=== PATIENT | male | born 1940 | race Caucasian/White ===

== ENCOUNTER 2017-02-20 12:32 | Emergency (ER) | payer MEDICARE, OTHER ==
[2017-02-20] MEDS ORDERED: Aspirin 81 MG Tab.Chew PO ONE ×2 (12:58→13:35)
[2017-02-20 13:05] VITALS: BP 147/90
--- NOTE | 2017-02-20 13:17 | EDM.PDOC ---
ED HPI GENERAL MEDICAL PROBLEM - General Chief Complaint: Neuro Symptoms/Deficits Stated Complaint: MAYBE A STROKE Time Seen by Provider: 02/20/17 12:45 - History of Present Illness INITIAL COMMENTS - FREE TEXT/NARRATIVE: Driving with about 90 minutes ago and developed double vision. Hard to drive, pulled over. Hx of similar sxs 10 years ago with full stroke work-up, no stroke found, has been on 81 mg of ASA since. Denies headache, change in speech , weakness, swallowing problems. Vision cleared after about 20 minutes - Related Data Allergies Allergy/AdvReac Type Severity Reaction Status Date / Time amoxicillin Allergy Shortness Verified 02/20/17 13:21 of Breath Home Meds: Home Meds Fluticasone/Salmeterol [Advair Diskus 500-50] 1 puff INH BID 02/20/17 [History] Sertraline [Zoloft] 100 mg PO DAILY 02/20/17 [History] atorvaSTATin [Lipitor] 10 mg PO DAILY 02/20/17 [History] traZODone 50 mg PO 5XDAY PRN 02/20/17 [History] Past Medical History Cardiovascular History: Reports: High Cholesterol Respiratory History: Reports: Asthma Oncologic (Cancer) History: Reports: Prostate Social & Family History - Family History Family Medical History: Noncontributory Cardiac: Reports: None ED ROS GENERAL - Review of Systems Review Of Systems: See Below Constitutional: Reports: No Symptoms HEENT: Reports: No Symptoms Respiratory: Reports: No Symptoms Cardiovascular: Reports: No Symptoms Endocrine: Reports: No Symptoms GI/Abdominal: Reports: No Symptoms : Reports: No Symptoms Musculoskeletal: Reports: No Symptoms Skin: Reports: No Symptoms Neurological: Reports: Other (double vision, cleared now). Denies: Headache, Numbness, Syncope, Tingling, Trouble Speaking, Difficulty Walking, Weakness, Change in Speech, Gait Disturbance Psychiatric: Denies: Confusion Hematologic/Lymphatic: Reports: No Symptoms Immunologic: Reports: No Symptoms ED EXAM, NEURO - Physical Exam Exam: See Below Exam Limited By: No Limitations General Appearance: Alert, No Apparent Distress Ears: Normal External Exam, Normal Canal, Hearing Grossly Normal, Normal TMs Nose: Normal Inspection, Normal Mucosa, No Blood Throat/Mouth: Normal Inspection, Normal Lips, Normal Oropharynx Head Exam: Atraumatic, Normocephalic Neck: Normal Inspection, Supple, Non-Tender. No: Carotid Bruit Respiratory/Chest: No Respiratory Distress, Lungs Clear, Normal Breath Sounds, Chest Non-Tender Cardiovascular: Normal Peripheral Pulses, Regular Rate, Rhythm, No Murmur GI/Abdominal: Normal Bowel Sounds, Soft, Non-Tender Neurological: Alert, Normal Mood/Affect, Normal Dorsiflexion, CN II-XII Intact, Normal Plantar Flexion, Normal Gait, Normal Reflexes, No Motor/Sensory Deficits , Oriented x 3 Back Exam: Normal Inspection Extremities: Normal Inspection Psychiatric: Normal Affect Skin Exam: Warm, Dry, No Rash Course - Vital Signs Last Recorded V/S: Last Vital Signs Temp 36.8 C 02/20/17 12:59 Pulse 78 02/20/17 12:59 Resp 16 02/20/17 12:59 BP 147/90 H 02/20/17 12:59 Pulse Ox 93 L 02/20/17 12:59 - Orders/Labs/Meds Orders: Active Orders 24 hr Category Date Time Status Up With Assistance [RC] ASDIRECTED Care 02/20/17 12:58 Inactive Iopamidol [Isovue-370 (76%)] Med 02/20/17 13:45 Active 100 ml IV . DIRECTED Sodium Chloride 0.9% [Normal Saline] 100 ml Med 02/20/17 13:45 Active IV ASDIRECTED Sodium Chloride 0.9% [Saline Flush] Med 02/20/17 13:35 Active 10 ml FLUSH ONETIME PRN Medication Orders Sodium Chloride (Normal Saline) 100 mls @ 4 mls/sec IV ASDIRECTED CONSTANZA Stop: 02/20/17 23:00 Last Admin: 02/20/17 14:07 Dose: 4 mls/sec Iopamidol (Isovue-370 (76%)) 100 ml IV . DIRECTED ON LICENSE OF [facility] Stop: 02/20/17 23:00 Last Admin: 02/20/17 14:07 Dose: 100 ml Sodium Chloride (Saline Flush) 10 ml FLUSH ONETIME PRN PRN Reason: per radiology protocol Stop: 02/20/17 23:00 Last Admin: 02/20/17 14:07 Dose: 10 ml Admin: 02/20/17 14:05 Dose: 10 ml Labs: Laboratory Tests 02/20/17 Range/Units 13:05 Sodium 142 (140-148) mmol/L Potassium 4.1 (3.6-5.2) mmol/L Chloride 106 (100-108) mmol/L Carbon Dioxide 25 (21-32) mmol/L Anion Gap 11.4 (5.0-14.0) mmol/L BUN 18 (7-18) mg/dL Creatinine 1.0 (0.8-1.3) mg/dL Est Cr Clr Drug Dosing 65.89 mL/min Estimated GFR (MDRD) > 60 (>60) Glucose 98 (74-106) mg/dL Calcium 8.8 (8.5-10.1) mg/dL Meds: Medications Generic Name Dose Route Start Last Admin Trade Name Freq PRN Reason Stop Dose Admin Sodium Chloride 100 mls @ 4 mls/sec 02/20/17 13:45 02/20/17 14:07 Normal Saline IV 02/20/17 23:00 4 mls/sec ASDIRECTED CONSTANZA Administration Iopamidol 100 ml 02/20/17 13:45 02/20/17 14:07 Isovue-370 (76%) IV 02/20/17 23:00 100 ml . DIRECTED CONSTANZA Administration Sodium Chloride 10 ml 02/20/17 13:35 02/20/17 14:07 Saline Flush FLUSH 02/20/17 23:00 10 ml ONETIME PRN Administration per radiology protocol Discontinued Medications Generic Name Dose Route Start Last Admin Trade Name Freq PRN Reason Stop Dose Admin Aspirin 81 mg 02/20/17 12:58 02/20/17 14:11 Aspirin PO 02/20/17 12:59 Not Given ONETIME ONE Aspirin 324 mg 02/20/17 13:35 02/20/17 14:10 Aspirin PO 02/20/17 13:36 324 mg ONETIME ONE Administration - Re-Assessments/Exams Free Text/Narrative Re-Assessment/Exam: 02/20/17 14:45 seen on arrival, his symptoms of double vision had resolved prior to arrival Exam was normal, CT and CTA of head were normal Departure - Departure Time of Disposition: 14:54 Disposition: Home, Self-Care 01 Condition: Good Clinical Impression: Double vision with both eyes open - Discharge Information Forms: ED Department Discharge Additional Instructions: Continue the daily ASA. If any more sxs should follow-up with your PMD for possible MRI and referral to neurology - Problem List & Annotations (1) Double vision with both eyes open SNOMED Code(s): 346184522 Code(s): H53.2 - DIPLOPIA Status: Acute Current Visit: Yes - Problem List Review Problem List Initiated/Reviewed/Updated: Yes - My Orders Last 24 Hours: My Active Orders 02/20/17 12:58 Up With Assistance [RC] ASDIRECTED 02/20/17 13:35 Sodium Chloride 0.9% [Saline Flush] 10 ml FLUSH ONETIME PRN 02/20/17 13:45 Iopamidol [Isovue-370 (76%)] 100 ml IV . DIRECTED Sodium Chloride 0.9% [Normal Saline] 100 ml IV ASDIRECTED - Assessment/Plan Last 24 Hours: My Active Orders 02/20/17 12:58 Up With Assistance [RC] ASDIRECTED 02/20/17 13:35 Sodium Chloride 0.9% [Saline Flush] 10 ml FLUSH ONETIME PRN 02/20/17 13:45 Iopamidol [Isovue-370 (76%)] 100 ml IV . DIRECTED Sodium Chloride 0.9% [Normal Saline] 100 ml IV ASDIRECTED Assessment:: Presenting with double vision prior to arrival, resolved before coming here. was concerned of possible stroke. on arrival his neuro exam was normal. CT and CTA of brain were normal. He was given 324 mg of ASA Plan: Will be discharged to home. Continue daily 81 mg ASA. If more sxs should follow- up with his PMD for possible MRI
[2017-02-20] MEDS ORDERED: Iopamidol 755 Mg/ML 100 ML Bottle IV SCH (13:45)
[2017-02-20] MEDS ORDERED: Sodium Chloride 0.9% 100 ML IV SCH (13:45)
[2017-02-20] MEDS: Sodium Chloride 0.9% 10 ML Syringe FLUSH PRN ×2 (14:05→14:07)
--- NOTE | 2017-02-20 14:20 | CT ---
Head wo Cont, Ang Head INDICATION: Double vision, rule out stroke. COMPARISON: None Total DLP 1157 FINDINGS: Noncontrast head CT: No acute intracranial hemorrhage, mass, or edema. Generalized cerebral and cere bellar volume loss. Remainder unremarkable. CTA head: Anterior, middle, and posterior cerebral arteries are patent. Patent anterior communicatin g artery. No occlusion, focal stenosis or aneurysm. IMPRESSION: No acute intracranial abnormality. Normal CTA head.
== END 2017-02-20 15:18 | disposition home or self-care (01) ==
LOC: JP.ED 12:32
DX: H53.2 Diplopia (principal); J45.909 Unspecified asthma, uncomplicated; E78.00 Pure hypercholesterolemia, unspecified; Z88.1 Allergy status to other antibiotic agents; Z79.899 Other long term (current) drug therapy
CPT/HCPCS: 36415; 70450; 70496; 80048; 96360; 96361; 99284; A9270; J7030; J7050; Q9967